=== PATIENT | male | born 1935 | race Caucasian/White ===

== ENCOUNTER 2017-12-16 08:58 | Emergency (ER) | payer OTHER ==
[~2017-12-16] VITALS: Ht 165.1 cm; Wt 72.6 kg
[~2017-12-16 08:58] MED LIST: ATACAND16 MG PO; TAMS0.4C PO; ZESTRIL20 MG PO
[2017-12-16] MEDS ORDERED: SYNTHROID50 MCG (09:12)
[2017-12-16] MEDS ORDERED: GLIPIZIDE5 MG (09:12)
== END 2017-12-16 10:30 | disposition home or self-care (01) ==
LOC: ER 08:58
DX: L02.512 Cutaneous abscess of left hand (principal); B96.1 Klebsiella pneumoniae [K. pneumoniae] as the cause of diseases classified elsewhere; B96.89 Other specified bacterial agents as the cause of diseases classified elsewhere

== ENCOUNTER 2018-07-23 21:01 | Inpatient (IN) | payer OTHER ==
[~2018-07-23] VITALS: Ht 165.1 cm; Wt 77.1 kg
[~2018-07-23 21:01] MED LIST changes: +GLIPIZIDE5 MG; +SYNTHROID50 MCG
== END 2018-07-29 13:43 | disposition home or self-care (01) | DRG 683 ==
LOC: ER 21:01 → MEDI 07-24 14:24 → SEC-K 07-24 14:24 → MEDI 07-24 15:06
PROC: BW25Y0Z Computerized Tomography (CT Scan) of Chest, Abdomen and Pelvis using Other Contrast, Unenhanced and Enhanced (ICD-10-PCS; principal; 2018-07-25)
PROC: 3E0336Z Introduction of Nutritional Substance into Peripheral Vein, Percutaneous Approach (ICD-10-PCS; 2018-07-25)
DX: N17.8 Other acute kidney failure (principal); J91.8 Pleural effusion in other conditions classified elsewhere; C78.6 Secondary malignant neoplasm of retroperitoneum and peritoneum; R18.0 Malignant ascites; C18.4 Malignant neoplasm of transverse colon; E86.0 Dehydration; K52.89 Other specified noninfective gastroenteritis and colitis; I12.9 Hypertensive chronic kidney disease with stage 1 through stage 4 chronic kidney disease, or unspecified chronic kidney disease; N18.1 Chronic kidney disease, stage 1; N40.0 Benign prostatic hyperplasia without lower urinary tract symptoms; K74.69 Other cirrhosis of liver; D63.0 Anemia in neoplastic disease